=== PATIENT | female | born 1990 ===

== ENCOUNTER → 2019-09-27 | Outpatient (CLI) | payer OTHER | END | disposition home or self-care (01) | LOC: PRENATAL 09:13 | PROVIDERS: ATTEND Obstetrics & Gynecology Maternal & Fetal Medicine | DX: O35.0XX1 Maternal care for (suspected) central nervous system malformation in fetus, fetus 1 (principal); O98.512 Other viral diseases complicating pregnancy, second trimester; Z3A.19 19 weeks gestation of pregnancy; Z36.89 Encounter for other specified antenatal screening ==